=== PATIENT | male | born 1975 | race African-American/Black ===

== ENCOUNTER 2017-10-23 10:49 | Emergency (ER) | payer MEDICAID ==
[~2017-10-23] VITALS: Ht 177.8 cm; Wt 67.2 kg
[2017-10-23 10:52] VITALS: BP 124/76
[2017-10-23] MEDS ORDERED: DIAZEPAM 5 MG TABLET PO ONE (11:30)
[2017-10-23] MEDS ORDERED: KETOROLAC 30 MG/1 ML IM ONE (11:30)
[2017-10-23] MEDS ORDERED: DIAZEPAM 5 MG TABLET ONE (11:49)
[2017-10-23] MEDS ORDERED: KETOROLAC 30 MG/1 ML ONE (11:49)
[2017-10-23] MEDS ORDERED: IBUPROFEN 200 MG TABLET ONE (12:04)
== END 2017-10-23 12:42 | disposition home or self-care (01) ==
LOC: ED 12:36
DX: S33.5XXA Sprain of ligaments of lumbar spine, initial encounter (principal); S16.1XXA Strain of muscle, fascia and tendon at neck level, initial encounter; F17.200 Nicotine dependence, unspecified, uncomplicated; V49.59XA Passenger injured in collision with other motor vehicles in traffic accident, initial encounter; Y93.89 Activity, other specified; Y92.89 Other specified places as the place of occurrence of the external cause; Y99.9 Unspecified external cause status
CPT/HCPCS: 72050; 72110; 99284